=== PATIENT | female | born 1975 | race Hispanic/Latino ===

== ENCOUNTER 2016-06-26 07:50 | Emergency (ER) | payer OTHER, MEDICARE ==
[~2016-06-26] VITALS: Ht 157.5 cm; Wt 86.2 kg
[~2016-06-26 07:50] MED LIST: COLACE100 MG PO; IBU-8800 MG PO; IMODIUM2 MG PO; LEVSIN0.125 MG PO; MELOXICAM15 MG PO; MELOXICAM7.5 MG PO; SERTRALINE HYDR25 MG PO; ZOFRAN 4 MG TABL4 MG PO
[2016-06-26 08:32] LABS: ABSOLUTE BASOPHIL COUNT 0.1 /CUMM (0.0-0.2); ABSOLUTE EOSINOPHIL COUNT 0.1 /CUMM (0.0-0.7); ABSOLUTE GRANULOCYTE CT 2.9 /CUMM (1.4-6.5); ABSOLUTE LYMPH COUNT 3.1 /CUMM (1.2-3.4); ABSOLUTE MONOCYTE COUNT 0.5 /CUMM (0.10-0.60); BASOPHIL % 0.9 % (0.0-2.0); EOSINOPHIL % 2.2 % (0-5); GRANULOCYTE % 43.4 % (42.2-75.2); HEMATOCRIT 42.5 % (37-47); MEAN CORPUSCULAR HGB 29.4 PG (27.0-31.0); MEAN CORPUSCULAR HGB CONC 34.1 G/DL (33.0-37.0); MEAN PLATELET VOLUME 9.1 FL (7.4-10.4); PLATELET COUNT 328 /CUMM (130-400); RBC DISTRIBUTION WIDTH 13.3 % (11.5-14.5); RED BLOOD CELL CT 4.94 /CUMM (4.20-5.40); WHITE BLOOD CELL COUNT 6.8 /CUMM (4.8-10.8)
--- NOTE | 2016-06-26 10:16 | CT SCAN REPORT ---
EXAMINATION: CT ANGIOGRAM OF THE CHEST WITH AND WITHOUT CONTRAST (CT PULMONARY ANGIOGRAM FOR PE) CLINICAL INFORMATION: Chest pain and dyspnea COMPARISON: None TECHNIQUE: Prior to contrast administration, noncontrast localization images were obtained. Subsequently, multidetector volumetric imaging was performed from the thoracic inlet to below the diaphragms following the administration of 98 mL Optiray 320 intravenous contrast. No contrast reaction reported. Sagittal, coronal, and MIP oblique sagittal reformatted images were obtained on the CT workstation, uploaded to PACS, and reviewed. Total exam dose-length product 561 mGy-cm. FINDINGS: QUALITY OF STUDY/CONTRAST BOLUS: Satisfactory PULMONARY ARTERIES: No central or segmental pulmonary emboli. THORACIC AORTA: No aneurysm or dissection. LUNG: No focal consolidation, nodules or masses. PLEURA: No pleural effusion or pneumothorax. MEDIASTINUM: Normal heart size. No pericardial effusion. No hilar or mediastinal lymphadenopathy. No evidence of septal bowing or right heart strain. CHEST WALL/AXILLA: No axillary or internal mammary lymphadenopathy. OSSEOUS STRUCTURES: No acute or suspicious osseous abnormality. UPPER ABDOMEN: Unremarkable. No reflux of contrast into the hepatic veins to suggest elevated right heart pressures. IMPRESSION: No evidence of pulmonary aneurysm. Unremarkable study. VTE: negative
--- NOTE | 2016-06-26 11:17 | ED DYSPNEA/ASTHMA COMPLAINT ---
History of Present Illness General Chief Complaint: Dyspnea (COPD, CHF, Other) Stated Complaint: SOB, CP Source: patient, family, old records, Epic Exam Limitations: no limitations Vital Signs & Intake/Output Vital Signs & Intake/Output Vital Signs Date Time Temp Pulse Resp B/P Pulse O2 O2 Flow FiO2 Ox Delivery Rate 06/26 0933 98.0 73 20 108/70 100 Room Air Room Air 06/26 0828 100 Room Air Room Air 06/26 0757 98.9 88 20 132/88 99 Room Air Allergies Coded Allergies: No Known Allergies (06/26/16) Reconcile Medications Docusate Sodium (Colace) 100 MG SGL 1 CAP PO DAILY CONSTIPATION (Reported) Meloxicam 15 MG TAB 1 TAB PO BID PAIN (Reported) SERTRALINE HCL (Sertraline Hydrochloride) 25 MG TAB 1 TAB PO DAILY MENTAL HEALTH (Reported) Triage Note: PT C/O CP AND SOB SINCE YESTERDAY. PT STATES TODAY SHE IS DIZZY AND MORE SOB. Triage Nurses Notes Reviewed? yes Onset: yesterday Duration: day(s):, continues in ED, waxing and waning Timing: recent history Severity: moderate Activities at Onset: activity Prior Episodes/Possible Cause: 01/06 RLL subsegmental PE/filling defect Modifying Factors: Improves With: rest. Worsens With: movement. Associated Symptoms: anxiety, cough, chest pain LMP (ages 10-50): unknown : No Patient currently breastfeeds: No HPI: 1 day prior to admission patient complains of sharp substernal chest pain mild to moderate severity with cough and deep breathing shortness of breath dyspnea on exertion. She denies fever chills nausea vomiting diarrhea abdominal pain headache dysuria rash bleeding. Past History Travel History Traveled to [place] past 21 day No Medical History Any Pertinent Medical History? see below for history Neurological: NONE EENT: NONE Cardiovascular: PE Respiratory: NONE Gastrointestinal: NONE Hepatic: NONE Renal: NONE Musculoskeletal: NONE Psychiatric: anxiety, depression, PTSD PANIC ATTACKS Endocrine: NONE Blood Disorders: NONE Cancer(s): NONE FIXED INCOME ANALYST/Reproductive: tubal ligation Influenza Vaccine: 01/20/15 Surgical History Surgical History: non-contributory Psychosocial History Who do you live with Family What is your primary language Italian Tobacco Use: Never used ETOH Use: denies use Illicit Drug Use: denies illicit drug use Family History Hx Contributory? No Review of Systems Review of Systems Constitutional: Reports: see HPI, malaise. EENTM: Reports: no symptoms. Respiratory: Reports: see HPI, cough, short of breath. Cardiovascular: Reports: see HPI, chest pain. GI: Reports: no symptoms. Genitourinary: Reports: no symptoms. Musculoskeletal: Reports: no symptoms. Skin: Reports: no symptoms. Neurological/Psychological: Reports: no symptoms. Hematologic/Endocrine: Reports: no symptoms. Immunologic/Allergic: Reports: no symptoms. All Other Systems: Reviewed and Negative Physical Exam Physical Exam General Appearance: well developed/nourished, alert, awake, anxious, mild distress, obese Head: atraumatic, normal appearance Eyes: Bilateral: normal appearance, PERRL, EOMI. Ears, Nose, Throat: normal pharynx, normal ENT inspection Neck: normal inspection, supple, full range of motion, no midline tenderness Respiratory: normal breath sounds, chest non-tender, no respiratory distress, quiet respiration, lungs clear Cardiovascular: regular rate/rhythm, normal peripheral pulses, norml femoral pulses equa Peripheral Pulses: 4+ carotid (R), 4+ carotid (L) Gastrointestinal: normal bowel sounds, soft, non-tender, no organomegaly Extremities: normal inspection, normal capillary refill, normal range of motion, no edema Neurologic/Psych: no motor/sensory deficits, awake, alert, oriented x 3, normal gait, normal mood/affect, black top roller II-XII nml as tested Skin: intact, normal color, warm/dry Lymphatic: no anterior cervical alejandrina Core Measures ACS in differential dx? No Severe Sepsis Present: No Septic Shock Present: No Progress Differential Diagnosis: asthma, bronchitis, pulmonary embolism, pneumonia Plan of Care: Orders Procedure Date/time Status Add-on Test (ER Only) 06/26 0829 Active TROPONIN LEVEL 06/26 08 Complete HUMAN BETA HCG SCREEN 06/26 08 Complete D-DIMER 06/26 0820 Complete COMPREHENSIVE METABOLIC PANEL 06/26 0820 Complete CBC WITHOUT DIFFERENTIAL 06/26 08 Complete EKG 06/26 0751 Active Laboratory Tests 06/26/16 0820: Anion Gap 9, Estimated GFR > 60, BUN/Creatinine Ratio 20.0, Glucose 93, Calcium 10.0, Total Bilirubin 0.6, AST 28, ALT 51, Alkaline Phosphatase 75, Troponin I < 0.01, Total Protein 7.4, Albumin 4.7, Globulin 2.7, Albumin/Globulin Ratio 1.7, Total Beta HCG NEGATIVE, D-Dimer < 200, CBC w Diff NO MAN DIFF REQ, RBC 4.94, MCV 86.0, MCH 29.4, RDW 13.3, MPV 9.1, Gran % 43.4, Lymphocytes % 46.2, Monocytes % 7.3, Eosinophils % 2.2, Basophils % 0.9, Absolute Granulocytes 2.9, Absolute Lymphocytes 3.1, Absolute Monocytes 0.5, Absolute Eosinophils 0.1, Absolute Basophils 0.1, PUBS MCHC 34.1 Diagnostic Imaging: Viewed by Me: CT Scan. Discussed w/RAD: CT Scan. Radiology Impression: no acute abnormality Initial ED EKG: normal axis, normal intervals, normal p-waves, normal QRS complex, normal sinus rhythm, no ST T wave changes Rhythm Strip: normal sinus rhythm Departure Departure Time of Disposition: 1122 Disposition: HOME OR SELF CARE Condition: Stable Clinical Impression Primary Impression: Chest pain syndrome Referrals: ZAC VAZQUEZ,KENTON TORRES (PCP/Family) Departure Forms: Customer Survey General Discharge Information Prescriptions: Current Visit Scripts Albuterol Sulfate (Proair Hfa) 2-4 PUF INH Q4-6 PRN PRN shortness of breath #1 INHAL Ibuprofen 1 TAB PO Q6PRN PRN pain #50 TAB with food Critical Care Note Critical Care Note Critical Care Time: non-applicable
[2016-06-26] MEDS ORDERED: IBUPROFEN600 M1 PO (11:24)
[2016-06-26] MEDS ORDERED: PROAIR HFA8.5 GM INH (11:24)
[2016-06-26 11:31] VITALS: BP 118/64
== END 2016-06-26 11:47 ==
LOC: ERH 07:50
PROVIDERS: Emergency Medicine
DX: R07.1 Chest pain on breathing (principal)
CPT/HCPCS: 1263; 93005; 93010

== ENCOUNTER 2016-07-09 17:45 | Emergency (ER) | payer OTHER, MEDICARE ==
[~2016-07-09] VITALS: Ht 157.5 cm; Wt 88.5 kg
[~2016-07-09 17:45] MED LIST changes: +IBUPROFEN600 M1 PO; +PROAIR HFA8.5 GM INH
--- NOTE | 2016-07-09 18:38 | ED GI/GU/ABDOMINAL COMPLAINT ---
History of Present Illness General Chief Complaint: Nausea, Vomiting, Diarrhea Stated Complaint: PT HOME FROM [facility] YESTERDAY/NVD Source: patient, old records Exam Limitations: no limitations Vital Signs & Intake/Output Vital Signs & Intake/Output Vital Signs Date Time Temp Pulse Resp B/P Pulse O2 O2 Flow FiO2 Ox Delivery Rate 07/09 2020 97.3 71 18 99/66 100 Room Air ED Intake and Output 07/10 0000 07/09 1200 Intake Total Output Total Balance Patient 195 lb Weight Allergies Coded Allergies: latex (RASH AND SWELLING 07/09/16) Reconcile Medications Albuterol Sulfate (Proair Hfa) 90 MCG HFA.AER.AD 2-4 PUF INH Q4-6 PRN PRN shortness of breath Ciprofloxacin HCl (Cipro) 500 MG TABLET 1 TAB PO BID DIARRHEA Dicyclomine Hydrochloride (Bentyl) 10 MG CAPSULE 1-2 CAP PO TID PAIN Ibuprofen 600 MG TABLET 1 TAB PO Q6PRN PRN pain with food Meloxicam 15 MG TABLET 1 TAB PO PRN PAIN/INFLAMMATION (Reported) Sertraline HCl 50 MG TABLET 1 TAB PO DAILY MENTAL HEALTH (Reported) Triage Note: STATES THAT SHE HAS BEEN HAVING DIARHEA SINCE SATURDAY, STATES THAT SHE WAS IN [facility]. DENIES V/ABD PAIN. Triage Nurses Notes Reviewed? yes ? N Is pt currently ? No Onset: Abrupt Duration: day(s): (3), constant, waxing and waning Timing: recent history Quality/Severity: aching (PRIOR TO BOWEL MOVEMENT), cramping, mild Severity Numbers: 3 Location: generalized abdomen Radiation: no radiation Activities at Onset: eating (S/P EATING LOCAL MEAL) Prior Abdominal Problems: none No Modifying Factors: none Associated Symptoms: DENIES HPI: 40-year-old female presents emergency room complaining of multiple episodes of diarrhea for the past 3 days. Patient states that she was recently in [place]. No sick contacts, she denies any vomiting or nausea or abdominal pain. No fever no chills. She denies any black or bloody stools. She denies history of similar episodes in the past and no modifying factors or associated symptoms otherwise. The patient states the symptoms came on approximately 30 minutes after having a local dish while in [place]. no rashes to her skin, (DEBBIE LEWIS,TERENCE) Past History Travel History Traveled to [place] past 21 day No Medical History Any Pertinent Medical History? see below for history Neurological: NONE EENT: NONE Cardiovascular: PE Respiratory: NONE Gastrointestinal: NONE Hepatic: NONE Renal: NONE Musculoskeletal: NONE Psychiatric: anxiety, depression, PTSD PANIC ATTACKS Endocrine: NONE Blood Disorders: NONE Cancer(s): NONE PHYSICAL THERAPY COORDINATOR/Reproductive: tubal ligation Surgical History Surgical History: tubal ligation Psychosocial History Who do you live with Family What is your primary language Bhutanese Tobacco Use: Never used ETOH Use: denies use Illicit Drug Use: denies illicit drug use Family History Hx Contributory? No (TERENCE BEAR) Review of Systems Review of Systems Constitutional: Reports: see HPI. All Other Systems: Reviewed and Negative Comments Review of systems: See HPI, All other systems negative. Constitutional, no chills no fever, no malaise HEENT: No visual changes no sore throat no congestion Cardiovascular: No chest pain , no palpitation Skin, no rashes, no change in skin Respiratory: No dyspnea no cough no sputum GI: No nausea no vomiting, diarrhea, : No dysuria e Muscle skeletal: No joint pain, no joint swelling, no back pain, no neck pain, Neurologic: No numbness Psych: No stress Heme/endocrine: No bruising no bleeding Immunology: No lymphadenopathy, no splenectomy (TERENCE BEAR) Physical Exam Physical Exam General Appearance: well developed/nourished, no apparent distress, alert, awake Gastrointestinal: soft Comments: Well-developed well-nourished person in no acute distress HEENT: Normal EENT exam; PERRL, EOMI,. HEAD is atraumatic. moist mucous membranes. Neck: Supple, normal range of motion Back: Nontender, no CVA tenderness. Full range of motion Cardiovascular: Regular rate and rhythms no murmurs rubs Respiratory: Chest nontender.There were no bony deformities, no asymmetry. No respiratory distress. Patient speaking in full complete sentences. Breath sounds clear to auscultation bilaterally: NO W/R/R Abdomen: Soft, nontender nondistended, no appreciable organomegaly. Normal bowel sounds. No rebound/guarding. Extremity: No edema, full range of motion of extremities Neuro: Alert oriented x3, motor sensory normal,There were no obvious focal neurologic abnormalities. Skin: No appreciable rash on exposed skin, skin is warm and dry. Psych: Mood and affect is normal, memory and judgment is normal. Core Measures ACS in differential dx? No Severe Sepsis Present: No Septic Shock Present: No (DEBBIE LEWIS,TERENCE) Progress Differential Diagnosis: colon cancer, diverticulitis, gastritis, hepatitis, TRAVELER'S DIARRHEA COLITIS DIVERTICULITIS MALIGNANCY gi BLEED ELECTROLYTE ABNORMALITY Plan of Care: Orders Procedure Date/time Status C.DIFFICILE 07/09 1916 Active CULTURE,STOOL 07/10 1843 Active LIPASE 07/10 1843 Active HEPATITIS PANEL 07/10 1843 Active COMPREHENSIVE METABOLIC PANEL 07/10 1843 Active CBC WITHOUT DIFFERENTIAL 07/10 1843 Complete AMYLASE 07/10 1843 Active Laboratory Tests 07/09/161902: Anion Gap 9, Estimated GFR > 60, BUN/Creatinine Ratio 20.0, Glucose 90, Calcium 9.4, Total Bilirubin 0.4, AST 22, ALT 43, Alkaline Phosphatase 71, Total Protein 6.6, Albumin 3.9, Globulin 2.7, Albumin/Globulin Ratio 1.4, Amylase 46, Lipase 43, CBC w Diff NO MAN DIFF REQ, RBC 4.44, MCV 86.8, MCH 29.3, RDW 13.3, MPV 8.4, Gran % 51.0, Lymphocytes % 35.8, Monocytes % 8.3, Eosinophils % 4.3, Basophils % 0.6, Absolute Granulocytes 3.7, Absolute Lymphocytes 2.6, Absolute Monocytes 0.6 , Absolute Eosinophils 0.3, Absolute Basophils 0, PUBS MCHC 33.8, Hepatitis A IgM Ab Pending, Hep Bs Antigen Pending, Hep B Core IgM Ab Conf Pending, Hepatitis C Antibody Pending Microbiology 07/09 1916 STOOL: Clostridium difficile Toxin A & B - ORD 07/10 1843 STOOL: Stool Culture - ORD Labs ordered old records reviewed case discussed with Dr. Ji IV fluids Zofran for Bentyl 40 by mouth ordered Case discussed with Dr. Ji agrees with plan Patient has had no episodes of diarrhea here. I discussed with the patient at length all of their results. I had an extensive conversation regarding need for close follow up with their primary care physician this week as well as return precautions. I answered all of their questions, they feel comfortable with the plan and follow-up care. I discussed the medications that they will receive with the patient. I gave them signs and symptoms that could indicate an adverse reaction. I have advised them to limit their activities until they can see how they respond to the medication. (TERENCE BEAR) Initial ED EKG: none (TERENCE BEAR) Departure Departure Disposition: HOME OR SELF CARE Condition: Stable Clinical Impression Primary Impression: Travelers' diarrhea Referrals: ZAC VAZQUEZ,KENTON TORRES (PCP/Family) Additional Instructions: CIPRO DIRECTED. BENTYL FOR PAIN. These were sent to [facility]. Follow-up as discussed with [facility] an outpatient with the form provided to provide the stool culture. FOLLOW UP WITH YOUR PMD THIS WEEK, CLEAR LIQUIDS BLAND DIET, ADVANCE TOLERATED. RETURN AT ANYTIME SOONER WTIH ANY CONCERNS Departure Forms: Customer Survey General Discharge Information (TERENCE BEAR) Departure Prescriptions: Current Visit Scripts Ciprofloxacin HCl (Cipro) 1 TAB PO BID #14 TAB Dicyclomine Hydrochloride (Bentyl) 1-2 CAP PO TID #15 CAP PA/ORDER DISPATCHER Co-Sign Statement Statement: ED Attending supervision documentation- [] I saw and evaluated the patient. I have also reviewed all the pertinent lab results and diagnostic results. I agree with the findings and the plan of care as documented in the PA's/ORDER DISPATCHER's documentation. [X] I have reviewed the ED Record and agree with the PA's/ORDER DISPATCHER's documentation. [] Additions or exceptions (if any) to the PAs/ORDER DISPATCHER's note and plan are summarized below: [] (PAULINO VAZQUEZ,KATHERIN Simpson)
[2016-07-09] MEDS ORDERED: MELOXICAM15 M1 PO (18:57)
[2016-07-09] MEDS ORDERED: SERTRALINE HCL50 MG PO (18:57)
[2016-07-09 19:16] LABS: ABSOLUTE BASOPHIL COUNT 0 /CUMM (0.0-0.2); ABSOLUTE EOSINOPHIL COUNT 0.3 /CUMM (0.0-0.7); ABSOLUTE GRANULOCYTE CT 3.7 /CUMM (1.4-6.5); ABSOLUTE LYMPH COUNT 2.6 /CUMM (1.2-3.4); ABSOLUTE MONOCYTE COUNT 0.6 /CUMM (0.10-0.60); BASOPHIL % 0.6 % (0.0-2.0); EOSINOPHIL % 4.3 % (0-5); HEMATOCRIT 38.5 % (37-47); MEAN CORPUSCULAR HGB 29.3 PG (27.0-31.0); MEAN CORPUSCULAR HGB CONC 33.8 G/DL (33.0-37.0); MEAN CORPUSCULAR VOLUME 86.8 FL (81.0-99.0); MEAN PLATELET VOLUME 8.4 FL (7.4-10.4); PLATELET COUNT 298 /CUMM (130-400); RBC DISTRIBUTION WIDTH 13.3 % (11.5-14.5); RED BLOOD CELL CT 4.44 /CUMM (4.20-5.40); WHITE BLOOD CELL COUNT 7.3 /CUMM (4.8-10.8)
[2016-07-09] MEDS ORDERED: CIPRO500 M1 PO (20:07)
[2016-07-09] MEDS ORDERED: BENTYL10 M1 PO (20:08)
[2016-07-09 20:21] VITALS: BP 99/66
== END 2016-07-09 20:41 ==
LOC: ERH 17:45
PROVIDERS: Physician Assistant Medical
DX: A09 Infectious gastroenteritis and colitis, unspecified (principal); R10.84 Generalized abdominal pain
CPT/HCPCS: 87045; 96361; 96374; J2405